=== PATIENT | female | born 1930 | race Caucasian/White ===

== ENCOUNTER 2018-08-17 14:45 | Emergency (ER) | payer OTHER ==
[2018-08-17 15:22] LABS: ADD MAN DIFF? NO
[2018-08-17 15:25] LABS: BASOPHIL # 0.1 10^3/ul (0.0-0.1); BASOPHILS % 0.4 % (0.0-2.0); EOSINOPHILS # 0.1 10^3/ul (0.0-0.5); EOSINOPHILS % 0.6 % (0.0-7.0); HEMATOCRIT 37.1 % (37.0-47.0); HEMOGLOBIN 12.1 g/dl (12.0-16.0); LYMPHOCYTES # 1.4 10^3/ul (0.8-2.9); LYMPHOCYTES % 8.6 % (15.0-51.0); MEAN CORPUSCULAR HEMOGLOBIN 28.5 pg (29.0-33.0); MEAN CORPUSCULAR HGB CONC 32.6 g/dl (32.0-37.0); MEAN CORPUSCULAR VOLUME 87.3 fl (82.0-101.0); MEAN PLATELET VOLUME 9.4 fl (7.4-10.4); MONOCYTE # 0.8 10^3/ul (0.3-0.9); NEUTROPHIL # 13.8 10^3/ul (1.6-7.5); NEUTROPHILS % 84.7 % (39.0-77.0); PLATELET COUNT 253 10^3/UL (140-415); RED BLOOD COUNT 4.25 10^6/ul (4.20-5.40); RED CELL DISTRIBUTION WIDTH 13.2 % (11.5-14.5)
[2018-08-17 15:25] LABS: WHITE BLOOD COUNT 16.2 10^3/ul (4.8-10.8)
[2018-08-17 15:41] LABS: ANION GAP 11 (8-16); BLOOD UREA NITROGEN 12 mg/dl (7-20); CALCIUM 9.7 mg/dl (8.4-10.2); CARBON DIOXIDE 27 mmol/L (21-31); CHLORIDE 104 mmol/L (97-110); CREATININE 0.73 mg/dl (0.44-1.00); GLUCOSE 111 mg/dl (70-220); SODIUM 138 mmol/L (135-144)
[2018-08-17 16:53] LABS: INR 1.01; PROTIME 13.4 Sec (11.9-14.9)
[2018-08-17 16:54] LABS: PARTIAL THROMBOPLASTIN TIME 36.5 Sec (23.0-35.0)
== END 2018-08-17 18:48 | disposition short-term general hospital (02) ==
LOC: E/R 14:45
DX: S32.401A Unspecified fracture of right acetabulum, initial encounter for closed fracture (principal); S32.591A Other specified fracture of right pubis, initial encounter for closed fracture; D72.829 Elevated white blood cell count, unspecified; R10.9 Unspecified abdominal pain; W01.0XXA Fall on same level from slipping, tripping and stumbling without subsequent striking against object, initial encounter; Y92.9 Unspecified place or not applicable
CPT/HCPCS: 71045; 72192; 80048; 85025; 85610; 85730; 93005; 99285-25